=== PATIENT | male | born 1980 | race Caucasian/White ===

== ENCOUNTER → 2018-03-05 08:51 | Outpatient (CLI) | payer BC, SELFPAY ==
[2018-03-05 12:11] LABS: Cholesterol 219 mg/dL (200); Glucose 87 mg/dL (74-106); High Density Lipoprotein 48 mg/dL; Triglycerides 148 mg/dL; Very Low Density Lipoprotein 30 mg/dL (5-40)
== END ==
PROVIDERS: Family Provider Family Medicine; PCP Family Medicine; Visit Provider Family Medicine
DX: Z00.01 Encounter for general adult medical examination with abnormal findings (principal); Z83.42 Family history of familial hypercholesterolemia
CPT/HCPCS: 36415; 80061; 82947

== ENCOUNTER → 2018-03-26 15:49 | Outpatient (CLI) | payer BC, SELFPAY | PROVIDERS: Family Provider Family Medicine; PCP Family Medicine; Referring Provider Otolaryngology Otolaryngology/Facial Plastic Surgery; Visit Provider Otolaryngology Otolaryngology/Facial Plastic Surgery | DX: J32.9 Chronic sinusitis, unspecified (principal); J34.89 Other specified disorders of nose and nasal sinuses | CPT/HCPCS: 87070; 87077; 87186; 87205 ==

== ENCOUNTER → 2018-05-07 11:30 | Outpatient (CLI) | payer BC, SELFPAY ==
--- OUTSIDE RECORDS SUMMARY | 2018-07-03 09:24 | XMS RPT_ITS ---
:1980 Author Organization [facility] Care Team Providers Name Role Phone Miguel Angel Cruz Attending Unavailable Miguel Angel Cruz Primary Care Unavailable Jeff Ovalle Attending Unavailable Jeff Ovalle Referring Unavailable Miguel Angel Cruz Primary Care Unavailable Jeff Ovalle Attending Unavailable Jeff Ovalle Referring Unavailable Miguel Angel Cruz Primary Care Unavailable Jeff Ovalle Attending Unavailable Jeff Ovalle Referring Unavailable Miguel Angel Cruz Primary Care Unavailable PROBLEMS PROBLEMS DATE TYPE CONDITION / CODE ATTENDING STATUS SOURCE Unknown Z00.01 - Encounter for Miguel Angel Cruz 8 general adult medical Community examination with abnormal Hospital findings / Z00.01(ICD-10) Repository Unknown Z83.42 - Family history Miguel Angel Cruz 8 of familial Community hypercholesterolemia / Hospital Z83.42(ICD-10) Repository PROCEDURES PROCEDURES No Procedure Records FoundRESULTS RESULTS SINUS/FACIAL BONE Observed: 05/20/2018 Status: F Source: [place] 3:58 PM [facility] REPOSITORY [facility] Imaging Services [address] [place] [address] Sinus/Facial Bone MR#: [id number] Acct: [id number] Name: LAWSON BROTHERS Rep #: [id number] : 1980 M 37 From: Hudson Webster MD PCP: Miguel Angel Cruz DO Status: REG CLI Study: Sinus/Facial Bone Date of Exam: 05/20/18 Exam# [id number] Ordering Dr: Jeff Ovalle MD STUDY: CT MAXILLOFACIAL SINUSES REASON FOR EXAM: Male, 37 years old. Headaches and sinusitis. RADIATION DOSAGE (If Supplied By Facility): CTDIvol = ( 33.45 ) mGy, DLP = ( 436.81 ) mGycm TECHNIQUE: The patient was scanned in a multi detector CT scanner. High resolution axial imaging was performed without the administration of intravenous contrast material. Sagittal and coronal images were reconstructed. Individualized dose optimization techniques were used for this CT. COMPARISON: None. FINDINGS: FRONTAL SINUSES: The periosteal thickening and fluid level seen in the dependent portions of the bifrontal sinuses. ETHMOIDAL SINUSES: Near complete opacification of the right ethmoid except for mucoperiosteal thickening in the most posterior air cell. There is mucoperiosteal thickening in mid left ethmoid air cells. The more anterior left ethmoid sinus is opacified MAXILLARY SINUSES: Near complete opacification of the right maxillary sinus. There is minor mucoperiosteal thickening on the left. SPHENOIDAL SINUSES: Minimal mucoperiosteal thickening at the anterior right sphenoid sinus. There is patency of the left maxillary infundibuli with normal uncinate processes, ethmoid bullae, and hiatus semilunaris. The right hiatus semilunaris is obscured and there is partial opacification of the ethmoid bullae. There is tana bullosa of the left middle turbinate. Normal bilateral inferior turbinates. Normal midline nasal septum. There is patency of the bilateral nasal airways. The visualized osseous structures are normal. The visualized bilateral orbital contents are normal. CT/Sinus/Facial Bone IMPRESSION: Bilateral paranasal sinusitis, as described. Electronically Signed: Zac Webster MD at 19:41 EST , Service support , CC: Jeff Ovalle MD; Miguel Angel Cruz DO Sales Appointment Coordinator: Signed Observed: 05/07/2018 Status: F Source: [place] CULTURE, NOSE 11:30 AM [facility] REPOSITORY Gram Stain Gram Stain Rare White Blood Cells Rare Gram positive rods Nasoph. Cult Mixed normal karie. No Haemophilus, Streptococcus pneumoniae, beta-hemolytic Streptococcus or Staphylococcus aureus isolated. Performed By: #### M100.0900 #### [facility] [place], [address] Observed: 03/26/2018 Status: F Source: [place] CULTURE, NOSE 1:30 PM [facility] REPOSITORY Gram Stain Gram Stain 2+ White Blood Cells No organisms seen Nasoph. Cult Copy of report sent to Infection Control Printer [id number] 03/29/18 08Priscilla TAMAYO. RESULTS CALLED TO MODE AT DR OVALLE 03/29/18 0803 Verito Church. REPORT READ BACK BY SAME. ORGANISM 1: Meth. resistant Staph. aureus Amount Growth 1+ Meth. resistant Staph. aureus: REACTION Benzylpenicillin NF 0.25 R Cefoxitin *NF + Clindamycin $$ <=0.25 S Inducable Clindamycin Resistan - Erythromycin $ >=8 R Gentamicin $ <=0.5 S Levofloxacin $ <=0.12 S Linezolid $$$$ 2 S Oxacillin NF >=4 R Tigecycline $$$$ <=0.12 S Rifampin $$ <=0.5 S Tetracycline NF <=1 S Trimethoprim/Sulfametho $ <=10 S Vancomycin $ 1 S (NF) indicates non-formulary drug at [facility]. Approval by Infectious Disease Specialist required before non-formulary drugs may be ordered and/or dispensed. * CLSI guidelines does not recommend testing of cephalosporins. This interpretation is deduced from Beta-lactam/penicillin results. Performed By: #### M100.0900 #### [facility] [address] [place], [address] LIPID PROFILE Collected: 03/05/2018 Status: F Source: [place] 9:02 AM [facility] REPOSITORY TYPE CODE TESTS RESULT OUT OF RANGE REFERENCE UNITS LAB L501.4900 200 mg/dL High CHOL 219 Result Comment: <200 mg/dL Desirable 200-240 mg/dL Borderline >240 mg/dL High Risk LAB L501.5000 mg/dL Normal TRIG 148 Result Comment: The drugs N-Acetylcysteine and Metamizole may falsely depress this assay. Serum Triglycerides Reference Interval Normal <150 mg/dL Borderline high 150 - 199 mg/dL High 200 - 499 mg/dL Very High > or = 500 mg/dL LAB L501.6400 mg/dL Normal HDL 48 Result Comment: The drugs N-Acetylcysteine and Metamizole may falsely depress this assay. Reference Range HDL <40 mg/dL Low HDL Cholesterol HDL >or= 60 mg/dL High HDL Cholesterol LAB L501.6500 0-130 mg/dL High LDL 141 LAB L501.6600 5-40 mg/dL Normal VLDL 30 Performed By: #### L500.4100, L501.0100 #### [facility] [address] [place], [place], [address] GLUCOSE Collected: 03/05/2018 Status: F Source: [place] 9:02 [facility] REPOSITORY TYPE CODE TESTS RESULT OUT OF RANGE REFERENCE UNITS LAB L501.0100 74-106 mg/dL Normal GLU 87 Result Comment: Please note revised GLUCOSE reference range effective 2017. Performed By: #### L500.4100, L501.0100 #### [facility] [address] [facility] [place], [address] ALLERGIES ALLERGIES No Allergies Records FoundENCOUNTERS ENCOUNTERS ADMIT/DISCHARGE ACCOUNT ADMITTING ENCOUNTER LOCATION SOURCE NUMBER CLASS 05/20/2018 [id number] Ambulatory [facility] 1 [facility] ing:CT Repository 05/07/2018 [id number] Ambulatory [place] 4 [facility] ing:LABSPEC Repository 03/26/2018 [id number] Ambulatory [place] 1 [facility] ing:LABSPEC Repository 03/05/2018 [id number] Ambulatory [place] 4 [facility] ing:BFHLAB Repository PAYERS PAYERS ENCOUNTER GUARANTOR PAYER SUBSCRIBER SOURCE 05/20/2018 LAWSON Matthews Primary LAWSON Galarza [id number] Insurance:ANTHEMPolic VIPPERMANDOB: Community DESTINY LNAPT y Number: [id number] [id number] Repository [address]Voz: (740) Date:7405-87-96EV [phone] () [id number] [place] [address]JP: 05/20/2018 Secondary NOT GIVENUNK [place] Insurance:SELF PAY [facility] Number: Effective Repository Date:2018-05-10 05/07/2018 LAWSON Matthews Primary LAWSON Galarza [id number] Insurance:ANTHEMPolic VIPPERMANDOB: Community DESTINY LNAPT y Number: [id number] [id number] Repository [address]Fnr: ([phone]) Date:5882-10-86UY [phone] () [id number] [place] [address]CW: 05/07/2018 Secondary NOT GIVENUNK [place] Insurance:SELF PAY [facility] Number: Effective Repository Date:2018-05-07 03/26/2018 Lawson Matthews Primary Lawson Galarza [id number] Insurance:ANTHEMPolic VippermanDOB: Community DESTINY LNAPT y Number: [id number] [id number] Repository [address]Rmo: (740) Date:5909-81-82DI [phone] () [id number], [place] [address]UL: 03/26/2018 Secondary NOT GIVENUNK [place] Insurance:SELF PAY [facility] Number: Effective Repository Date:2018-03-26 03/05/2018 Lawson Matthews Primary Lawson Galarza [id number] Insurance:ANTHEMPolic VippermanDOB: Community DESTINY Number: [id number] [id number] Repository , [place] [address]Dja: Date:1432-03-13AW [address]KRQKS, [place] () [address]BJ: 03/05/2018 Secondary NOT GIVENPARVEEN [place] Insurance:SELF PAY [facility] Number: Effective Repository Date:2018-03-05
== END ==
PROVIDERS: Family Provider Family Medicine; PCP Family Medicine; Referring Provider Otolaryngology Otolaryngology/Facial Plastic Surgery; Visit Provider Otolaryngology Otolaryngology/Facial Plastic Surgery
DX: J32.9 Chronic sinusitis, unspecified (principal)
CPT/HCPCS: 87070; 87205

== ENCOUNTER → 2018-05-20 15:54 | Outpatient (CLI) | payer BC, SELFPAY ==
--- NOTE | 2018-05-20 15:58 | CT_ITS ---
STUDY: CT MAXILLOFACIAL SINUSES REASON FOR EXAM: Male, 37 years old. Headaches and sinusitis. RADIATION DOSAGE (If Supplied By Facility): CTDIvol = ( 33.45 ) mGy, DLP = ( 436.81 ) mGycm TECHNIQUE: The patient was scanned in a multi detector CT scanner. High resolution axial imaging was performed without the administration of intravenous contrast material. Sagittal and coronal images were reconstructed. Individualized dose optimization techniques were used for this CT. COMPARISON: None. FINDINGS: FRONTAL SINUSES: The periosteal thickening and fluid level seen in the dependent portions of the bifrontal sinuses. ETHMOIDAL SINUSES: Near complete opacification of the right ethmoid except for mucoperiosteal thickening in the most posterior air cell. There is mucoperiosteal thickening in mid left ethmoid air cells. The more anterior left ethmoid sinus is opacified MAXILLARY SINUSES: Near complete opacification of the right maxillary sinus. There is minor mucoperiosteal thickening on the left. SPHENOIDAL SINUSES: Minimal mucoperiosteal thickening at the anterior right sphenoid sinus. There is patency of the left maxillary infundibuli with normal uncinate processes, ethmoid bullae, and hiatus semilunaris. The right hiatus semilunaris is obscured and there is partial opacification of the ethmoid bullae. There is tana bullosa of the left middle turbinate. Normal bilateral inferior turbinates. Normal midline nasal septum. There is patency of the bilateral nasal airways. The visualized osseous structures are normal. The visualized bilateral orbital contents are normal. CT/Sinus/Facial Bone IMPRESSION: Bilateral paranasal sinusitis, as described. Electronically Signed: Zac Webster MD at 19:41 EST , Service support ,
--- OUTSIDE RECORDS SUMMARY | 2018-07-07 00:56 | XMS RPT_ITS ---
[...] 05/20/2018 Status: F Source: [place] 3:58 PM [facility] Imaging Services [address] [place] [address] Sinus/Facial Bone MR#: [id number] Acct: [id number] Name: LAWSON BROTHERS Rep #: [id number] : 1980 M 37 From: Hudson Webster MD PCP: Miguel Angel Cruz DO Status: REG CLI Study: Sinus/Facial Bone Date of Exam: 05/20/18 Exam# [id number] Ordering Dr: Jeff Ovalle MD ADDENDUM by Wade Helton MD on 06/12/18 at 1341 ADDENDUM This is an addendum report. There is mucosal thickening along the anterior inferior medial aspect of the left maxillary sinus. This measures 5.4 mm in greatest thickness. Electronically Signed: Wade Helton MD at 13:41 EST Tel [phone], Service support , 06/12/18 1341 Date cc: Jeff Ovalle MD; Miguel Angel Cruz DO * Signed ADDENDUM by Zac Webster on 06/07/18 at 1206 ADDENDUM The left sphenoid sinus is clear. Electronically Signed: Zac Webster MD at 12:06 EST , Service support , 06/07/18 1206 Date cc: Jeff Ovalle MD; Miguel Angel Cruz DO * Signed ADDENDUM by Wade Helton MD on 06/12/[address]/Sinus/Facial Bone 06/12/18 1347 Date cc: Jeff Ovalle MD; Miguel Angel Cruz DO * Signed ADDENDUM by aZc Webster on 06/07/[address]/Sinus/Facial Bone 06/07/18 1212 Date cc: Jeff Ovalle MD; Miguel Angel Cruz DO * Signed STUDY: CT MAXILLOFACIAL SINUSES REASON FOR EXAM: [...] Jeff Ovalle MD; Miguel Angel Cruz DO Internal Communications Manager: Signed Observed: 05/07/2018 Status: F Source: [place] CULTURE, NOSE 11:30 AM [facility] Gram Stain Gram Stain Rare White Blood Cells Rare Gram positive rods Nasoph. Cult Mixed normal karie. No Haemophilus, Streptococcus pneumoniae, beta-hemolytic Streptococcus or Staphylococcus aureus isolated. Performed By: #### M100.0900 #### [facility] [address] [place], [address] Observed: 03/26/2018 Status: F Source: [place] CULTURE, NOSE 1:30 PM [facility] Gram Stain Gram Stain 2+ White Blood Cells No organisms seen Nasoph. Cult Copy of report sent to Infection Control Printer [id number] 03/29/18 0803 RONI. RESULTS CALLED TO MODE AT DR OVALLE [...] 1 S (NF) indicates non-formulary drug at [facility]. Approval by Infectious Disease Specialist required before non-formulary drugs may be ordered and/or dispensed. * CLSI guidelines does not recommend testing of cephalosporins. This interpretation is deduced from Beta-lactam/penicillin results. Performed By: #### M100.0900 #### [facility] [address] [place], [place], [address] LIPID PROFILE Collected: 03/05/2018 Status: F Source: [place] 9:02 [facility] REPOSITORY TYPE CODE TESTS RESULT OUT OF [...] 30 Performed By: #### L500.4100, L501.0100 #### [facility] [address] [place], [place], [address] GLUCOSE Collected: 03/05/2018 Status: F Source: [place] 9:02 [facility] REPOSITORY TYPE CODE TESTS RESULT OUT OF RANGE REFERENCE UNITS LAB L501.0100 74-106 mg/dL Normal GLU 87 Result Comment: Please note revised GLUCOSE reference range effective 2017. Performed By: #### L500.4100, L501.0100 #### [facility] [place], [address] ALLERGIES ALLERGIES No Allergies Records FoundENCOUNTERS ENCOUNTERS ADMIT/DISCHARGE ACCOUNT ADMITTING ENCOUNTER LOCATION SOURCE NUMBER CLASS 05/20/[id number] ing:CT Repository 05/07/[id number] ing:LABSPEC Repository 03/26/[id number] ing:LABSPEC Repository 03/05/[id number] ing:BFHLAB Repository PAYERS PAYERS ENCOUNTER GUARANTOR PAYER SUBSCRIBER SOURCE 05/20/2018 LAWSON Schofield [id number] Insurance:ANTHEMPolic VIPPERMANDOB: [facility] LNAPT y Number: [id number] [id number] Repository [address]Fas: 740) Date:7149-53-77NH [phone] () [id number] [place] [address]WS: 05/20/2018 Secondary NOT GIVENUNK [place] Insurance:SELF PAY [facility] Number: Effective Repository Date:2018-05-10 05/07/2018 LAWSON Matthews Primary LAWSON Schofield [id number] Insurance:ANTHEMPolic VIPPERMANDOB: [facility] y Number: [id number] [id number] Repository [address]Sbe: (740) Date:2943-32-03FD [phone] () [id number] [place] [address]LE: 05/07/2018 Secondary NOT GIVENUNK [place] Insurance:SELF PAY [facility] Number: Effective Repository Date:2018-05-07 03/26/2018 Lawson Matthews Primary Lawson Schofield [id number] Insurance:ANTHEMPolic VippermanDOB: [facility] LNAPT y Number: [id number] [id number] Repository [address]Ntu: 740) Date:0195-32-41QZ [phone] () [id number], [place] [address]PH: 03/26/2018 Secondary NOT GIVENUNK [place] Insurance:SELF PAY [facility]: Effective Repository Date:2018-03-26 03/05/2018 Lawson Matthews Primary Lawson Matthews [place] [id number] Insurance:ANTHEMPolic VippermanDOB: Community DESTINY y Number: [id number] [id number] Repository , [place] [address]Fro: Date:8464-69-61OT [id number] REAL () [address]HB: 03/05/2018 Secondary NOT GIVENUNK [place] Insurance:SELF PAY [facility]: Effective Repository Date:2018-03-05
== END ==
PROVIDERS: Family Provider Family Medicine; PCP Family Medicine; Referring Provider Otolaryngology Otolaryngology/Facial Plastic Surgery; Visit Provider Otolaryngology Otolaryngology/Facial Plastic Surgery
DX: J32.9 Chronic sinusitis, unspecified (principal)
CPT/HCPCS: 70486

== ENCOUNTER → 2018-09-21 08:52 | Outpatient (CLI) | payer BC, SELFPAY ==
--- NOTE | 2018-09-21 08:57 | CT_ITS ---
STUDY: CT MAXILLOFACIAL SINUSES REASON FOR EXAM: Male, 38 years old. Sinusitis RADIATION DOSAGE (If Supplied By Facility): CTDIvol = ( 33.06 ) mGy, DLP = ( 866.91 ) mGycm TECHNIQUE: The patient was scanned in a multi detector CT scanner. High resolution axial imaging was performed without the administration of intravenous contrast material. Sagittal and coronal images were reconstructed. Individualized dose optimization techniques were used for this CT. COMPARISON: 05/20/2018 FINDINGS: FRONTAL SINUSES: Normal aeration, without mucosal inflammatory disease. ETHMOIDAL SINUSES: Normal aeration, without mucosal inflammatory disease. MAXILLARY SINUSES: 15 mm cyst in the floor of the right maxillary sinus. SPHENOIDAL SINUSES: Normal aeration, without mucosal inflammatory disease. There is patency of the bilateral maxillary infundibuli with normal uncinate processes, ethmoid bullae, and hiatus semilunaris. Normal bilateral middle turbinates. Normal bilateral inferior turbinates. Normal midline nasal septum. There is patency of the bilateral nasal airways. The visualized osseous structures are normal. The visualized bilateral orbital contents are normal. CT/Sinus/Facial Bone IMPRESSION: No evidence of acute or chronic paranasal sinusitis. Electronically Signed: Balwinder Anguiano MD at 18:19 EDT Tel , Service support ,
== END ==
PROVIDERS: Family Provider Family Medicine; PCP Family Medicine; Referring Provider Otolaryngology; Visit Provider Otolaryngology
DX: J32.9 Chronic sinusitis, unspecified (principal)
CPT/HCPCS: 70486

== ENCOUNTER → 2019-08-04 | Outpatient (CLI) | payer OTHER, SELFPAY | END | disposition home or self-care (01) | PROVIDERS: PCP Family Medicine; Referring Provider Otolaryngology; Visit Provider Otolaryngology | DX: J32.9 Chronic sinusitis, unspecified (principal) | CPT/HCPCS: 87070; 87077; 87205 ==

== ENCOUNTER 2019-11-18 12:11 | Emergency (ER) | payer OTHER, SELFPAY ==
[2019-11-18 12:13] VITALS: BP 131/92; BP 140/101; PULSE 104; PULSE 97; RESP 16; RESP 18; TEMP 36.7; O2SAT 100; O2SAT 99; BMI 27.0
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
== END 2019-11-18 13:53 | disposition home or self-care (01) ==
PROVIDERS: Emergency Provider Emergency Medicine; PCP Family Medicine
DX: S16.1XXA Strain of muscle, fascia and tendon at neck level, initial encounter (principal); V59.40XA Driver of pick-up truck or van injured in collision with unspecified motor vehicles in traffic accident, initial encounter; Y93.9 Activity, unspecified; Y92.9 Unspecified place or not applicable; J32.9 Chronic sinusitis, unspecified; M48.02 Spinal stenosis, cervical region; F41.9 Anxiety disorder, unspecified; Z79.899 Other long term (current) drug therapy
CPT/HCPCS: 70450; 72125; 99284

== ENCOUNTER → 2019-11-28 08:49 | Outpatient (CLI) | payer OTHER, SELFPAY ==
[2019-11-18 12:13] VITALS: BMI 27.0
[2019-11-28 12:46] LABS: Cholesterol 206 mg/dL (200); High Density Lipoprotein 41 mg/dL; Triglycerides 132 mg/dL; Very Low Density Lipoprotein 26 mg/dL (5-40)
== END ==
PROVIDERS: PCP Family Medicine; Visit Provider Family Medicine
DX: E78.5 Hyperlipidemia, unspecified (principal)
CPT/HCPCS: 36415; 80061

== ENCOUNTER 2019-12-22 14:30 | Emergency (ER) | payer OTHER, SELFPAY ==
[2019-12-22 14:31] VITALS: BP 144/97; PULSE 102; RESP 18; TEMP 36.6; O2SAT 99; BMI 27.0
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
--- NOTE | 2019-12-22 15:35 | ED.VISSUMM ---
- ER Visit Summary Date of Service: 12/22/19 Chief Complaint: [Foreign body to left thumb] History of Present Illness: The patient is a 39 M [presents to the emergency department with a nail lodged in his left thumb. Patient states that he was helping a friend when he accidentally shot himself with a nail gun. Patient is right-hand dominant. He is unsure of his last tetanus.] Physical Examination: [Left hand-patient has a large nail with entrance into the left thumb over the area of the dorsal first MCP joint. Initially with the nail in the thumb he had limited ability to flex or extend the thumb secondary to pain and foreign body present. He is neurovascularly intact with normal sensation.] After removal of the nail patient had normal flexion extension of the thumb at the MCP joint as well as the IP joint against resistance. Test Results: [X-rays of the left thumb obtained showed a nail in the soft tissues however it was unclear if it was penetrating into the bone.] Emergency Department Course and Treatment: Patient was given a digital block using 2% lidocaine total of 8 cc used. Thumb was cleansed with Shur-Clens and irrigated with saline. Using needle drivers I was able to easily remove the nail from the finger. Once again the puncture wound was irrigated with saline and cleansed with Shur-Clens. Patient tolerated procedure well. Dressing was applied. Adacel tetanus booster was given. Patient given a dose of clindamycin as he believes that he has had allergic reaction to cephalosporins. [] Treatment Plan: [Patient will be given a prescription for clindamycin and advised to follow-up with primary care physician in 3 to 5 days.] Disposition: [Discharged home in stable condition] Impression: [Foreign body left thumb-removed] This note was generated with Yoomlyation software. It may contain incorrect words, spelling, and punctuation that were not noted in review of the chart prior to signing ED Disposition - Plan for ED Patient: Referrals: Miguel Angel Cruz DO [Primary Care Provider] -
--- NOTE | 2019-12-22 15:39 | ED.DEP ---
ED Disposition - Plan for ED Patient: Instructions: ED Foreign Body Soft Tissue Prescriptions: Clindamycin HCl [Cleocin] 300 mg PO Q6H #40 cap Transmission Status: Pending to [id number] Referrals: Miguel Angel Cruz DO [Primary Care Provider] - 3-5 Days
[2019-12-22] MEDS: Diphth,Pertuss(Acell),Tet Vac 0.5 ML Vial IM (16:06)
[2019-12-22] MEDS: Clindamycin HCl 150 MG Capsule 300 MG PO (16:07)
[2019-12-22 16:23] VITALS: PULSE 94; RESP 17; O2SAT 98
== END 2019-12-22 16:26 | disposition home or self-care (01) ==
LOC: ED 15:59
PROVIDERS: Emergency Provider Emergency Medicine; PCP Family Medicine
DX: S60.352A Superficial foreign body of left thumb, initial encounter (principal); W29.4XXA Contact with nail gun, initial encounter; Y93.9 Activity, unspecified; Y92.9 Unspecified place or not applicable
CPT/HCPCS: 73130; 90471; 90715; 99284

== ENCOUNTER → 2020-04-19 17:51 | Outpatient (CLI) | payer BC, SELFPAY | PROVIDERS: PCP Family Medicine; Referring Provider Otolaryngology; Visit Provider Otolaryngology | DX: U07.1 COVID-19 (principal) | CPT/HCPCS: 87635; C9803; U0003 ==

== ENCOUNTER → 2021-04-28 | Outpatient (CLI) | payer BC, SELFPAY | END | disposition home or self-care (01) | LOC: LABSPEC 10:03 | PROVIDERS: PCP Family Medicine; Visit Provider Otolaryngology | DX: J32.9 Chronic sinusitis, unspecified (principal) | CPT/HCPCS: 87070; 87077; 87205 ==

== ENCOUNTER → 2021-10-05 | Outpatient (CLI) | payer BC, SELFPAY | END | disposition home or self-care (01) | LOC: LABSPEC 14:08 | PROVIDERS: PCP Family Medicine; Referring Provider Dermatology; Visit Provider Dermatology | DX: S60.032A Contusion of left middle finger without damage to nail, initial encounter (principal) | CPT/HCPCS: 87070; 87077; 87186; 87205 ==

== ENCOUNTER → 2021-12-29 | Outpatient (CLI) | payer BC, SELFPAY | END | disposition home or self-care (01) | LOC: LABSPEC 15:37 | PROVIDERS: PCP Family Medicine; Visit Provider Otolaryngology | DX: J32.9 Chronic sinusitis, unspecified (principal) | CPT/HCPCS: 87070; 87205 ==

== ENCOUNTER → 2024-04-25 | Outpatient (CLI) | payer OTHER, SELFPAY ==
[2024-04-25 10:34] LABS: Absolute Lymphocyte Count 1.79 X10^3/uL (0.83-4.51); Absolute Neutrophil Count 5.5 X10^3/uL (2.0-7.7); Basophil# 0.03 X10^3/uL; Basophil% 0.4 % (0-1); Eosinophil# 0.07 X10^3/uL; Eosinophils% 0.9 % (0-5); Hematocrit 43.7 % (40-54); Hemoglobin 14.2 g/dL (13.0-16.5); Lymphocyte # 1.79 X10^3/ul (0.83-4.51); Lymphocyte % 22.1 % (19-41); Mean Corp Hgb Conc 32.5 g/dL (32-36); Mean Corpuscular Hgb 28.3 pg (27.0-32.0); Mean Corpuscular Volume 87.1 fL (80-94); Mean Platelet Vol. 9.5 fl (6.2-12.0); Monocyte# 0.69 X10^3/uL; Monocyte% 8.5 % (0-10); NRBC Flagged by Analyzer 0 % (0-5); Neutrophil # 5.46 X10^3/uL (2.7-7.7); Neutrophil % 67.5 % (47-70); Platelet Count 333 K/mm3 (150-450); RBC Distribution Width CV 12.2 % (11.6-14.6); RBC Distribution Width SD 38.9 fl (35.1-43.9); Red Blood Count 5.02 M/mm3 (4.6-6.2); White Blood Count 8.1 K/mm3 (4.4-11.0)
[2024-04-25 10:43] LABS: Erythrocyte Sedimentation Rate 11 mm/hr (0-20)
[2024-04-25 11:16] LABS: Amylase 58 U/L (25-115); CPK Total, Creatine Kinase 124 U/L (39-308); Lipase 45 U/L (13-75)
[2024-04-30 09:09] LABS: ACCA 495 units (0-90); ALCA 82 units (0-60); AMCA 531 units (0-100); Albumin 3.6 g/dL (2.9-4.4); Aldolase 4.7 U/L (3.3-10.3); Alpha-1-Globulins 0.4 g/dL (0.0-0.4); Alpha-2-Globulins 1.1 g/dL (0.4-1.0); Cytoplasmic Ab (C-ANCA) <1:20 titer (Neg:<1:20); Endomysial Antibody IgA Negative (Negative); Gamma Globulin 1.2 g/dL (0.4-1.8); Gastrin, Serum 30 pg/mL (0-115); Immunoglobulin A 225 mg/dL (90-386); Immunoglobulin E 46 IU/mL (6-495); Immunoglobulin G 1021 mg/dL (603-1613); Immunoglobulin M 308 mg/dL (20-172); PROEL- TOTAL PROTEIN 7.5 g/dL (6.0-8.5); Perinuclear Ab (P-ANCA) <1:20 titer (Neg:<1:20); gASCA 11 units (0-50); t-Transglutaminase IgA <2 U/mL (0-3)
[2024-04-30 12:10] LABS: Anti-Centromere B Ab <0.2 AI (0.0-0.9); Anti-Chromatin <0.2 AI (0.0-0.9); Anti-Jo <0.2 AI (0.0-0.9); Anti-Scleroderma-70 AB <0.2 AI (0.0-0.9); Anti-dsDNA Ab <1 IU/mL (0-9); Beef <0.10 kU/L (Class 0); Chocolate <0.10 kU/L (Class 0); Codfish <0.10 kU/L (Class 0); Corn 0.11 kU/L (Class 0/I); Egg, Whole <0.10 kU/L (Class 0); Milk (Cow) <0.10 kU/L (Class 0); Mussels <0.10 kU/L (Class 0); Peanut 0.15 kU/L (Class 0/I); Pork <0.10 kU/L (Class 0); RNP Ab <0.2 AI (0.0-0.9); SJOGREN'S Anti-SS-A test < 0.2 AI (0.0-0.9); SJOGREN'S Anti-SS-B test < 0.2 AI (0.0-0.9); Salmon <0.10 kU/L (Class 0); Shrimp <0.10 kU/L (Class 0); Smith Ab <0.2 AI (0.0-0.9); Soybean <0.10 kU/L (Class 0); Tuna <0.10 kU/L (Class 0); Wheat 0.11 kU/L (Class 0/I)
== END | disposition home or self-care (01) ==
PROVIDERS: PCP Family Medicine; Referring Provider Internal Medicine Gastroenterology; Visit Provider Internal Medicine Gastroenterology
DX: K44.9 Diaphragmatic hernia without obstruction or gangrene (principal); K21.9 Gastro-esophageal reflux disease without esophagitis
CPT/HCPCS: 36415; 82085; 82150; 82550; 82784; 82785; 82941; 83516; 83690; 84165; 85025; 85652; 86003; 86005; 86036; 86037; 86140; 86225; 86235; 86255; 86334; 86671

== ENCOUNTER → 2024-05-07 | Outpatient (CLI) | payer OTHER, SELFPAY ==
[2024-05-12 16:09] LABS: Pancreatic Elastase, Fecal > 800 (>200)
[2024-05-13 17:07] LABS: Calprotectin, Stool 38 ug/g (0-120); Fats, Neutral Normal (.); Fats, Total Normal (.)
== END | disposition home or self-care (01) ==
PROVIDERS: PCP Family Medicine; Referring Provider Internal Medicine Gastroenterology; Visit Provider Otolaryngology
DX: J32.9 Chronic sinusitis, unspecified (principal); K58.9 Irritable bowel syndrome, unspecified; K44.9 Diaphragmatic hernia without obstruction or gangrene; K21.9 Gastro-esophageal reflux disease without esophagitis
CPT/HCPCS: 82274; 82653; 82705; 83630; 83993; 87070; 87077; 87177; 87205; 87209; 87329; 87493; 87506

== ENCOUNTER → 2024-06-12 | Outpatient (CLI) | payer OTHER, SELFPAY ==
--- NOTE | 2024-06-12 12:26 | NM_ITS ---
CLINICAL: 43-year-old male with history of abdominal hernia and reflux esophagitis. SEMI-SOLID PHASE 99m Tc SULFUR COLLOID GASTRIC EMPTYING STUDY COMPARISON: None available FINDINGS: The patient was administered 1.0 mCi of 99m Tc sulfur colloid mixed with oatmeal and consumed per os. Image acquisitions in the anterior-posterior projections were obtained for 60 minutes. There is prompt visualization of the stomach. There is no gastroesophageal reflux identified. The T ? raw data emptying was calculated to be 30.96 minutes, (Normal: 12-56 minutes). NM/Gastric Emptying Study IMPRESSION: 1. NORMAL 99m Tc sulfur colloid semi-solid phase (oatmeal) gastric emptying imaging examination. A. There is normal and preserved semi-solid phase gastric emptying compared to normal controls with maintained first order kinetics throughout all components of the examination. (Shahab et al, J Nucl Med Tech 38: 186, 2010). Electronically Signed: Cabrera Holloway DO at 20:53 EST ,
== END | disposition home or self-care (01) ==
LOC: NM 12:24
PROVIDERS: PCP Family Medicine; Referring Provider Internal Medicine Gastroenterology; Visit Provider Internal Medicine Gastroenterology
DX: K44.9 Diaphragmatic hernia without obstruction or gangrene (principal); K21.9 Gastro-esophageal reflux disease without esophagitis
CPT/HCPCS: 78264; A9541

== ENCOUNTER → 2024-07-02 | Outpatient (CLI) | payer OTHER, SELFPAY ==
[2024-07-02 14:12] LABS: CRP < 2.90 mg/L (0.0-3.0)
== END | disposition home or self-care (01) ==
LOC: LAB 12:41
PROVIDERS: PCP Family Medicine; Referring Provider Nurse Practitioner Acute Care; Visit Provider Nurse Practitioner Acute Care
DX: K21.9 Gastro-esophageal reflux disease without esophagitis (principal); R79.82 Elevated C-reactive protein (CRP); R89.9 Unspecified abnormal finding in specimens from other organs, systems and tissues
CPT/HCPCS: 36415; 86140

== ENCOUNTER → 2024-07-07 | Outpatient (CLI) | payer OTHER, SELFPAY ==
--- NOTE | 2024-07-07 08:59 | MRI_ITS ---
STUDY: MR ENTEROGRAPHY WITH CONTRAST REASON FOR EXAM: Male, 43 years old. K21.9 - Gastro-esophageal reflux disease without esophagitis, NO C/O ABDOMINAL PAIN TECHNIQUE: Multipulse sequence MRI performed with IV contrast according to standard MR enterography protocol following administration of oral contrast for maximal bowel distention. Images were obtained from the dome of the diaphragm to the symphysis pubis. IV Yes was administered intravenously. TECHNICAL QUALITY: Image Quality: Satisfactory Small Bowel Distension: Adequate. COMPARISON: None. FINDINGS: FINDINGS: Bowel: Bowel wall thickening: Absent. Skip lesions: Short segment narrowing third ileum seen on image series 15 involving a 4.35 cm length of about which shows alternating beading with small areas of stenoses/narrowing then return to somewhat normal caliber of bowel which is a typical finding of extrinsic fibrosis or mucosal changes related to inflammatory bowel disease versus irritable bowel syndrome. Normal remaining small bowel. Vascularity: Normal. Enhancement: Normal. Fistula: None. Abscess: None. Other Findings: The visualized lung bases are unremarkable. The visualized portions of the heart are within normal limits. Normal liver. Normal gallbladder and extrahepatic biliary system. Normal spleen. Normal pancreas. Normal bilateral adrenal glands. Normal right kidney. Normal left kidney. Normal visualized stomach. Normal small intestine. Normal colon. The appendix is visualized and appears normal. Normal abdominal aorta. Normal inferior vena cava. Normal retroperitoneum. Normal urinary bladder. Normal abdominal wall. Normal osseous structures. MRI/Enterography Abd/Pel IMPRESSION: 1. Skip lesions: Short segment narrowing third ileum seen on image /42 series 15 involving a 4.35 cm length of about which shows alternating beading with small areas of stenoses/narrowing then return to somewhat normal caliber of bowel which is a typical finding of extrinsic fibrosis or mucosal changes related to inflammatory bowel disease versus irritable bowel syndrome. Normal remaining small bowel. Electronically Signed: Antonio Torres MD at 9:26 EST ,
[2024-07-07 09:48] VITALS: BP 118/82; PULSE 67; RESP 16; O2SAT 100; BMI 27.6
[2024-07-07] MEDS: Glucagon 1 MG/ML Syringe IV (10:58)
[2024-07-07] MEDS: 0.9% Saline Lock 10 ML Syringe IV (10:58)
[2024-07-07 11:15] VITALS: BP 144/84; PULSE 74; RESP 16; O2SAT 97
== END | disposition home or self-care (01) ==
LOC: MRI 08:55
PROVIDERS: PCP Family Medicine; Referring Provider Nurse Practitioner Acute Care; Visit Provider Nurse Practitioner Acute Care
DX: K21.9 Gastro-esophageal reflux disease without esophagitis (principal); R79.82 Elevated C-reactive protein (CRP); R89.9 Unspecified abnormal finding in specimens from other organs, systems and tissues
CPT/HCPCS: 74183; 96374; A9575; A4216; J1610

== ENCOUNTER 2024-07-08 05:26 | Day surgery (SDC) | payer OTHER, SELFPAY ==
[2024-07-08] VITALS (8 sets, daily range): BP systolic 105–141; BP diastolic 69–99; PULSE 65–91; RESP 16–20; TEMP 36.2–36.3; O2SAT 95–100; BMI 27.1
--- NOTE | 2024-07-08 06:24 | PRE.ANES_ITS ---
ASA Classification* ASA Classification ASA Classification: 2 Assessment & Plan Anesthesia* Anesthesia Assessment Anesthesia Assessment: Discussed sedation and/or anesthesia options, risks, benefits, and alternatives with patient/parents/legal guardian/POA. Questions invited. The patient/parents/legal guardian/POA seems to understand and agrees to proceed with anesthesia plan. Reviewed the physical assessment, medical history, allergy history and patient home medications list prior to surgery/procedure/anesthetic and documented any changes. Performed airway and anesthesia risk assessments. Anesthesia Type Anesthesia Type: MAC History Source History Obtained from:: Patient and Chart Anesthesia Focused Assessment* Temperature: 97.3 F Pulse Rate: 91 Blood Pressure: 141/99 Respiratory Rate: 20 Pulse Ox: 100 Oxygen Delivery Method: Room Air Airway Assessment Mouth opens: >3 cm Mallampati Score: II Teeth Condition: Intact Neck Range of motion (ROM): Full ROM Focused Labs Anesthesia Preop lab: CBC WBC 8.1 K/mm3 (4.4-11.0) 04/25/24 10:03 RBC 5.02 M/mm3 (4.6-6.2) 04/25/24 10:03 Hgb 14.2 g/dL (13.0-16.5) 04/25/24 10:03 Hct 43.7 % (40-54) 04/25/24 10:03 Plt Count 333 K/mm3 (150-450) 04/25/24 10:03 CHEMISTRY Potassium 3.5 mmol/L (3.5-5.1) 12/17/15 07:23 Sodium 139 mmol/L (136-145) 12/17/15 07:23 BUN 10 mg/dL (7-18) 12/17/15 07:23 Creatinine 1.17 mg/dL (0.70-1.30) 12/17/15 07:23 Glucose 87 mg/dL (74-106) 03/05/18 09:02 TSH 1.24 uIU/mL (0.358-3.74) 12/17/15 07:23 COAG Pre-Assessment Diagnosis/Proposed Procedure Planned Operative Procedure(s): EGD/CSCOPE Anesthesia History 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 When Was Last Pacemaker Check QUESTION #4 FULL TEXT: You/Your Family Experience fever (hyperthermia) with Anesthesia Last Oral Intake Last Oral intake: Last Oral Intake NPO since 05:30 07/08/24 06:01 Meds taken in AM with sips of No 07/08/24 06:01 water? Meds patient instructed to take am of surgery Any additional information?: Yes NPO since: 02: (Patient finished prep at 2:30 AM.) PONV PONV - ambulance dispatcher: PONV - ambulance dispatcher Female No 07/04/24 14:11 HX of Motion Sickness No 07/04/24 14:11 HX of N/V After Surgery No 07/04/24 14:11 Non-Smoker Yes 07/04/24 14:11 Duration of Surgery greater No 07/04/24 14:11 than 60 minutes Number of Risk Factors 1 07/04/24 14:11 PONV Score Low Risk 07/04/24 14:11 Height & Weight Height & Weight: Anesthesia: Height & Weight Height 6 ft 2 in 07/08/24 06:01 Weight: 96 kg 07/08/24 06:01 Body Mass Index (BMI) 27.1 07/08/24 06:01 Respiratory Assessment Respiratory Assessment - ambulance dispatcher: Respiratory Tract Infection Hx - ambulance dispatcher Hx Respiratory Tract Infection No 07/04/24 14:11 STOP Sleep Apnea STOP Sleep Apnea - ambulance dispatcher: STOP Sleep Apnea - ambulance dispatcher Hx Hypertension No 07/04/24 14:11 Hx Sleep Apnea No 07/04/24 14:11 CPAP BIPAP Do you snore loudly (louder No 07/04/24 14:11 than talking or can be heard Do you often feel tired/ No 07/04/24 14:11 fatigued/ sleepy during daytime? Has anyone observed you stop No 07/04/24 14:11 breathing during sleep? STOP Results Negative 07/04/24 14:11 QUESTION #5 FULL TEXT : Do you snore loudly (louder than talking or can be heard through closed doors)? 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 Specify any problems Hx of Preganancy in last 3 N/A 07/04/24 14:11 Months Nurse Filling Out Transfusion DSCHRIBER 07/04/24 14:11 & Questions: Date: 07/04/24 07/04/24 14:11 Time: 14:12 07/04/24 14:11 Patient unable to answer at this time (ie. confused, unrespo /Reproduction History /Reproductive History - ambulance dispatcher: /Reproductive Hx- ambulance dispatcher Hx Now No 07/04/24 14:11 Gestational Age (in weeks): EDC: Hx Hx Para Hx Section SAB No 07/04/24 14:11 [facility] Medical History History of hiatal hernia Gastric reflux Non-smoker Chronic sinusitis Cervical spondylosis with radiculopathy Teeth grinding Allergic rhinitis Depression Anxiety Home Medications ?Medication ?Instructions ?Recorded ?Last Taken ?Type escitalopram oxalate 10 mg tablet 10 mg PO DAILY 11/18/19 07/07/24 History lansoprazole 30 mg capsule,delayed 30 mg PO .COMPLEX #90 caps 05/27/24 Unknown Rx release pantoprazole 40 mg tablet,delayed 40 mg PO DAILY 07/07/24 07/07/24 History release (Protonix) Allergy/AdvReac Type Severity Reaction Status Date / Time cefadroxil Allergy Rash Verified 07/08/24 05:59 lorazepam AdvReac Other Verified 07/08/24 05:59 Family History Father Hypertension High cholesterol Prostate cancer metastatic to rectum Mother Cancer skin Surgical History H/O endoscopy Social History number of children: 3 current occupational status: employed 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
--- NOTE | 2024-07-08 06:30 | EGD_PTH ---
PATIENT: REID BROTHERS LOC: EN U#:[id number] AGE/SX: 43/M ROOM: RE07/08/[address]: Dr. Kg Quintanilla DO : 1980 BED: DIS: 07/08/2024 SPEC #: [id number] RECD: 07/08/24 11:12 STATUS: CYN SHAUNA #: [id number] KAYLIE: 07/08/24 06:[address]: Kg Quintanilla DEPT: SURGICAL PATHOLOGY RECD BY: Judy Knutson ENTERED: 07/08/24 12:22 SP TYPE: EGD BIOPSY OT DR: Dr. Miguel Angel Cruz DO Tissues: A - Esophagus, NOS B - Duodenum, NOS C - Ileum, NOS D - COLON BIOPSY E - Rectum, NOS Procedures: Special Stain Group I Surgery Specimen Level IV Alcian Blue/PAS (control) HEADER OPERATION: Colonoscopy with biopsies, EGD with biopsies PRE-OP DIAGNOSIS: Elevated CRP, hiatal hernia, GERD TISSUE SUBMITTED: A- Distal esophagus biopsy, B- Duodenum biopsy, C- Terminal ileum biopsy, D- Random colon biopsy, E- Rectal biopsy MICROSCOPIC DIAGNOSIS A. Distal esophagus, biopsy: Fragments of gastroesophageal mucosa with moderate chronic inflammation. Intestinal metaplasia (goblet cell metaplasia) not identified. See comment. B. Duodenum, biopsy: Fragments of duodenal mucosa, no pathologic diagnosis. C. Terminal ileum, biopsy: Fragments of small intestinal mucosa, no pathologic diagnosis. See comment. D. Colon, random biopsy: Fragments of colonic mucosa, no pathologic diagnosis. E. Rectal biopsy: Fragments of colonic mucosa, no pathologic diagnosis. GREG. 07/09/2024 COMMENT A. Alcian blue/PAS stain with matched control is used in the evaluation of the specimen. C. Prominent lymphoid aggregates are noted. MICROSCOPIC DESCRIPTION Slides are reviewed. GROSS DESCRIPTION A. Received in fixative is one container labeled with the patient's name and designated Distal esophagus biopsy. The specimen consists of multiple irregular fragments of light mcclure soft tissue that in aggregate measure 1.7 x 0.3 x 0.2 cm. The specimen is totally submitted in one cassette. B. Received in fixative is one container labeled with the patient's name and designated Duodenum biopsy. The specimen consists of multiple irregular fragments of light mcclure soft tissue that in aggregate measure 1.3 x 0.3 x 0.2 cm. The specimen is totally submitted in one cassette. C. Received in fixative is one container labeled with the patient's name and designated Terminal ileum biopsy. The specimen consists of multiple irregular fragments of light mcclure soft tissue that in aggregate measure 1.2 x 0.3 x 0.2 cm. The specimen is totally submitted in one cassette. D. Received in fixative is one container labeled with the patient's name and designated Random colon biopsy. The specimen consists of multiple irregular fragments of light mcclure soft tissue that in aggregate measure 1.8 x 0.4 x 0.3 cm. The specimen is totally submitted in one cassette. E. Received in fixative is one container labeled with the patient's name and designated Rectal biopsy. The specimen consists of two irregular fragments of light mcclure soft tissue that in aggregate measure 1.2 x 0.3 x 0.2 cm. The specimen is totally submitted in one cassette. ANGEL LUIS.mr 07/08/2024 TC:3 CPT:21981g5,35107
--- NOTE | 2024-07-08 06:40 | HP.PCM_ITS ---
HPI - General General Date of Admission: 07/08/24 Date of Service: 07/08/24 HPI Narrative 43y/o male presents for EGD and colonoscopy regarding family history of esophageal cancer, breakthrough GERD and diarrhea - seen in office today with his father Mother with colitis but not ulcerative colitis Maternal Uncle with esophageal cancer Paternal Aunt with colon CA in her 90's Food Panel: 04/25/2024 corn, peanut, wheat Fecal Elastase: 04/25/2024 normal Fecal Calprotectin: 04/25/2024 normal pANCA: 04/25/2024 normal ALCA 04/25/2024 82 (H) AMCA 04/25/2024 531(H) ACCA 04/25/2024 495(H) Gastrin 04/25/2024 normal Celiac Serologies 04/25/2024 normal Ricardo: 04/25/2024 normal Stool Cultures, GIPCR, C. Diff negative Occult Stool 04/25/[address] Chest/ABD/Pelvis with contrast was performed 10/24/2023 and revealed a small HH with a small amount of contrast seen throughout the esophagus which may be seen with GERD and a small fat containing umbilical hernia. - reports his symptoms are acid reflux, with breakthrough - protonix 40mg daily - has been on this for years - denies any cough or dysphagia - spicy food, caffeine, sugar - reports at the time he was last seen here he had a sinus infection and had just started taking doxycycline - this is when labs were completed - has never had a colonoscopy - EGD 10 years ago revealed a HH ([facility]) - GES is scheduled for 06/12/2023 - denies any change in bowel habits - denies nay bleeding - denies any abdominal pain - denies any weight loss - for sinus infection he has completed 2 rounds of doxycycline, had a nasal culture and just started Bactrim yesterday for the next 7 days [facility] Medical History History of hiatal hernia Gastric reflux Non-smoker Chronic sinusitis Cervical spondylosis with radiculopathy Teeth grinding Allergic rhinitis Depression Anxiety Home Medications ?Medication ?Instructions ?Recorded ?Last Taken ?Type escitalopram oxalate 10 mg tablet 10 mg PO DAILY 11/18/19 07/07/24 History lansoprazole 30 mg capsule,delayed 30 mg PO .COMPLEX #90 caps 05/27/24 Unknown Rx release pantoprazole 40 mg tablet,delayed 40 mg PO DAILY 07/07/24 07/07/24 History release (Protonix) Allergy/AdvReac Type Severity Reaction Status Date / Time cefadroxil Allergy Rash Verified 07/08/24 05:59 lorazepam AdvReac Other Verified 07/08/24 05:59 Family History Father Hypertension High cholesterol Prostate cancer metastatic to rectum Mother Cancer skin Surgical History H/O endoscopy Social History number of children: 3 current occupational status: employed 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) Smoking Status: Never smoker alcohol intake: current alcohol intake frequency: holidays/special occasions only substance use type: does not use ROS Constitutional Constitutional: Denies fatigue, fever(s), poor appetite, weight gain or weight loss Gastrointestinal Gastrointestinal: Denies belching, bloating, change in bowel habits, change in stool character, chewing difficulty, coffee ground emesis, constipation, cramping, diarrhea, dyspepsia, dysphagia, early satiety, excessive flatus, fecal incontinence, heartburn, hematemesis, hematochezia, hemorrhoids, loose stools, melena, nausea, odynophagia, rectal bleeding, tenesmus, vomiting or weight changes Vital Signs Vital Signs Vital Signs: 07/08/24 06:01 07/08/24 06:01 07/08/24 06:30 Temperature 97.3 F L 97.3 F L Temperature Source Temporal Pulse Rate 91 91 Respiratory Rate 20 H 20 H Respiratory Pattern Normal Blood Pressure 141/99 H 141/99 H Blood Pressure Mean 113 Blood Pressure Source Monitor Blood Pressure Position Semi-Fowlers Blood Pressure Location Left Arm Pulse Ox 100 100 Oxygen Delivery Method Room Air Room Air Weight Weight: 211 lb 10.3 oz Body Mass Index (BMI) 27.1 Physical Exam Const alert, oriented x3, no apparent distress and healthy appearing General Appearance: cooperative GI normal to inspection, nondistended, normoactive bowel sounds, soft to palpation, non-tender and non-distended Percussion: normal to percussion Rectal Exam: deferred Assessment & Plan Assessment/Plan (1) Elevated C-reactive protein: (2) Hiatal hernia: (3) GERD (gastroesophageal reflux disease): QUALIFIERS: Esophagitis presence: esophagitis presence not specified Qualified Code(s): K21.9 - Gastro-esophageal reflux disease without esophagitis (4) Diarrhea: PLAN: Plan Plan 43y/o male presents for follow-up. He was last seen by Dr. Quintanilla on 04/25/2024. Labs completed 04/25/2024 reveal CRP 21, allergy to corn, peanut and wheat. He had labs completed on 04/25/2024 and reports he had a sinus infection and was on doxycycline at the time. This may account for the elevated CRP. He started Bactrim yesterday (3rd ATB) for treatment of sinus infection. Of note he reports new onset leg cramps, muscle aches and joint pain since starting Bactrim and he will follow-up with switching clerk to discuss. We will plan to repeat CRP 7 days after completion of ATB. He reports a long history of GERD with a prior EGD that revealed a small HH 10 years ago. He has been on pantoprazole 40mg daily for the past 10+ years and c/o an increase in breakthrough symptoms with trigger foods (spicy, caffeine, sugar). As noted above his celiac labs were negative with a mild elevation in wheat, corn and peanuts on food allergen testing. He will continue wheat containing products at this time and we have discussed duodenal biopsy at time of EGD as definitive diagnosis for a true wheat/gluten allergy. We have discussed intolerance versus allergy. He may benefit from elimination of wheat from diet in future; however, we will assess his symptoms with trial of different PPI and elimination of corn and peanuts. If his breakthrough HB symptoms resolve with elimination of corn and peanuts and new PPI. We will plan to taper PPI to lowest possible dose for symptom management. If he continues to have breakthrough symptoms we will consider PCAB in place of PPI and elimination of wheat. Typically, those who have a true gluten allergy replace wheat products with corn substitutes and if he requires a wheat/corn free diet he will likely benefit from a pharmacy intern referral. Labs also revealed an elevated ALCA (82), AMCA (531), ACCA (495) and CRP (21) with normal CBC, CMP and fecal calprotectin. While these markers have a modest accuracy of detecting/differentiating UC/Crohn's and disease behavior, they are not diagnostic. Additionally, of these markers the pANCA and ASCA have a high specificity for IBD and these were both normal. He denies any change in bowel habits, pain, bleeding, or weight loss. He denies any family history of IBD. I recommend a colonoscopy and EGD as well as an MRE for further evaluation. Patient Instructions: 1. Discontinue pantoprazole 2. Start Lansoprazole 3. Schedule MRE 4. Proceed with colonoscopy and EGD 5. eliminate corn and peanuts form diet 6. follow-up in office after completion of testing to review findings Plan Details Follow Up: 3 Months
--- NOTE | 2024-07-08 07:25 | OP.CCLET_ITS ---
07/08/2024 Miguel Angel Cruz [address] [place] [address] [place] [address] Re : Upper GI endoscopy procedure for Lawson Hinson Dear Dr. Cruz This procedure was performed on Monday, July 08, 2024. My impressions and recommendations are as follows: Impressions : - Z-line irregular, 38 cm from the incisors. Biopsied. - Small hiatal hernia. - Erythematous duodenopathy. Biopsied. Recommendations : - Discharge patient to home. - Resume previous diet. - Continue present medications. - Await pathology results. My findings are described in the full procedure note, which is enclosed. If I can be of further assistance, please feel free to contact me at . Sincerely, Kg Quintanilla, 07/08/2024 7:24:23 AM This report has been signed electronically.
--- NOTE | 2024-07-08 07:25 | OP.EGD_ITS ---
Patient Name: Lawson Hinson Procedure Date: 07/08/2024 6:27 AM Date of : 1980 Age: 43 Procedure: Upper GI endoscopy Indications: Heartburn Providers: Kg Quintanilla DO Referring MD: Miguel Angel Cruz Medicines: Monitored Anesthesia Care Patient Profile: This is a 43 year old male. Refer to note in patient chart for documentation of history and physical. Patient has symptoms of chronic dyspepsia and chronic heartburn. Complications: No immediate complications. Procedure: Pre-Anesthesia Assessment: - Prior to the procedure, a History and Physical was performed, and patient medications and allergies were reviewed. The patient is competent. The risks and benefits of the procedure and the sedation options and risks were discussed with the patient. All questions were answered and informed consent was obtained. Patient identification and proposed procedure were verified by the physician in the pre-procedure area. Mental Status Examination: alert and oriented. Airway Examination: normal oropharyngeal airway and neck mobility. Respiratory Examination: clear to auscultation. CV Examination: normal. Prophylactic Antibiotics: The patient does not require prophylactic antibiotics. Prior Anticoagulants: The patient has taken no anticoagulant or antiplatelet agents except for NSAID medication. ASA Grade Assessment: II - A patient with mild systemic disease. After reviewing the risks and benefits, the patient was deemed in satisfactory condition to undergo the procedure. The anesthesia plan was to use monitored anesthesia care (MAC). Immediately prior to administration of medications, the patient was re-assessed for adequacy to receive sedatives. The heart rate, respiratory rate, oxygen saturations, blood pressure, adequacy of pulmonary ventilation, and response to care were monitored throughout the procedure. The physical status of the patient was re-assessed after the procedure. After obtaining informed consent, the endoscope was passed under direct vision. Throughout the procedure, the patient's blood pressure, pulse, and oxygen saturations were monitored continuously. The pediatric colonoscope was introduced through the mouth, and advanced to the second part of duodenum. The upper GI endoscopy was accomplished without difficulty. The patient tolerated the procedure well. Scope In: 6:49:39 AM Scope Out: 6:53:06 AM Total Procedure Duration Time 0 hours 3 minutes 27 seconds Findings: The Z-line was irregular and was found 38 cm from the incisors. Biopsies were taken with a cold forceps for histology. Verification of patient identification for the specimen was done. Estimated blood loss was minimal. A small hiatal hernia was present. The exam of the stomach was otherwise normal. Patchy mildly erythematous mucosa without active bleeding and with no stigmata of bleeding was found in the duodenal bulb. Biopsies were taken with a cold forceps for histology. Verification of patient identification for the specimen was done. Estimated blood loss was minimal. Impression: - Z-line irregular, 38 cm from the incisors. Biopsied. - Small hiatal hernia. - Erythematous duodenopathy. Biopsied. Recommendation: - Discharge patient to home. - Resume previous diet. - Continue present medications. - Await pathology results. Procedure Code(s): --- Professional --- 07711, Esophagogastroduodenoscopy, flexible, transoral; with biopsy, single or multiple CPT copyright 2021 [employer]. All rights reserved. The codes documented in this report are preliminary and upon want ad receiver review may be revised to meet current compliance requirements. Kg Quintanilla DO 07/08/2024 7:24:23 AM This report has been signed electronically. Number of Addenda: 0 Note Initiated On: 07/08/2024 6:27 AM
--- NOTE | 2024-07-08 07:26 | PCM.POST.ANE ---
Anesthesia: Postop Eval I Current Vital Signs Temperature: 97.2 F Pulse Rate: 67 Blood Pressure: 110/78 Respiratory Rate: 16 Pulse Ox: 96 Oxygen Delivery Method: Room Air Assessment Airway patent: Yes Spontaneous unlabored respirations: Yes Mental status: Asleep nausea: No Vomiting: No Anesthesia Complication: No Fluid Hydration Crystalloid volume administer (ml): 90 Total IV fluid infused: 90 Progress Note Anesthesia document: Postop Eval 1 completed: Yes
--- NOTE | 2024-07-08 07:30 | OP.COLON_ITS ---
Patient Name: Lawson Hinson Procedure Date: 07/08/2024 6:53 AM Date of : 1980 Age: 43 Procedure: Colonoscopy Indications: Generalized abdominal pain, Clinically significant diarrhea of unexplained origin Providers: Kg Quintanilla DO Referring MD: Miguel Angel Cruz Medicines: Monitored Anesthesia Care Patient Profile: This is a 43 year old male. Refer to note in patient chart for documentation of history and physical. Patient has symptoms of chronic dyspepsia and chronic heartburn. Last Colonoscopy: none. The patient's first colonoscopy is today. Complications: No immediate complications. Procedure: Pre-Anesthesia Assessment: - Prior to the procedure, a History and Physical was performed, and patient medications and allergies were reviewed. The patient is competent. The risks and benefits of the procedure and the sedation options and risks were discussed with the patient. All questions were answered and informed consent was obtained. Patient identification and proposed procedure were verified by the physician in the pre-procedure area. Mental Status Examination: alert and oriented. Airway Examination: normal oropharyngeal airway and neck mobility. Respiratory Examination: clear to auscultation. CV Examination: normal. Prophylactic Antibiotics: The patient does not require prophylactic antibiotics. Prior Anticoagulants: The patient has taken no anticoagulant or antiplatelet agents except for NSAID medication. ASA Grade Assessment: II - A patient with mild systemic disease. After reviewing the risks and benefits, the patient was deemed in satisfactory condition to undergo the procedure. The anesthesia plan was to use monitored anesthesia care (MAC). Immediately prior to administration of medications, the patient was re-assessed for adequacy to receive sedatives. The heart rate, respiratory rate, oxygen saturations, blood pressure, adequacy of pulmonary ventilation, and response to care were monitored throughout the procedure. The physical status of the patient was re-assessed after the procedure. After I obtained informed consent, the scope was passed under direct vision. Throughout the procedure, the patient's blood pressure, pulse, and oxygen saturations were monitored continuously. The pediatric colonoscope was introduced through the anus and advanced to the terminal ileum. The colonoscopy was performed without difficulty. The patient tolerated the procedure well. The quality of the bowel preparation was adequate. The terminal ileum, ileocecal valve, appendiceal orifice, and rectum were photographed. Scope In: 6:54:25 AM Scope Withdrawal Time 0 hours 9 minutes 7 seconds Scope Out: 7:18:48 AM Total Procedure Duration Time 0 hours 24 minutes 23 seconds Findings: The perianal and digital rectal examinations were normal. The rectum, recto-sigmoid colon, sigmoid colon, descending colon and splenic flexure were moderately redundant. Biopsies were taken with a cold forceps for histology. Verification of patient identification for the specimen was done. Estimated blood loss was minimal. A localized area of the terminal ileum was congested. Biopsies were taken with a cold forceps for histology. Verification of patient identification for the specimen was done. Estimated blood loss was minimal. Impression: - Redundant colon. - Congested mucosa in the terminal ileum. Biopsied. Recommendation: - Discharge patient to home. - Resume previous diet. - Continue present medications. - Await pathology results. - Repeat colonoscopy in 10 years for screening purposes. Procedure Code(s): --- Professional --- 80869, Colonoscopy, flexible; with biopsy, single or multiple CPT copyright 2021 [employer]. All rights reserved. The codes documented in this report are preliminary and upon hims coder review may be revised to meet current compliance requirements. Kg Quintanilla DO 07/08/2024 7:29:47 AM This report has been signed electronically. Number of Addenda: 0 Note Initiated On: 07/08/2024 6:53 AM
--- NOTE | 2024-07-08 07:30 | OP.CCLET_ITS ---
07/08/2024 Miguel Angel Cruz [address] [place] [address] Re : Colonoscopy procedure for Lawson Hinson Dear Dr. Cruz This procedure was performed on Monday, July 08, 2024. My impressions and recommendations are as follows: Impressions : - Redundant colon. - Congested mucosa in the terminal ileum. Biopsied. Recommendations : - Discharge patient to home. - Resume previous diet. - Continue present medications. - Await pathology results. - Repeat colonoscopy in 10 years for screening purposes. My findings are described in the full procedure note, which is enclosed. If I can be of further assistance, please feel free to contact me at . Sincerely, Kg Quintanilla, 07/08/2024 7:29:47 AM This report has been signed electronically.
--- NOTE | 2024-07-08 22:35 | PCM.POSTANE2 ---
Anesthesia Postop Eval I Sum Postop Eval Completion status Anesthesia document: Postop Eval 1 completed: Yes Anesthesia Postop Eval I Summary Anesthesia Postop Eval I Summary: Anesthesia Postop Eval I: Assessment Summary Airway patent Yes 07/08/24 07:28 [email or web address] Spontaneous unlabored Yes 07/08/24 07:28 [email or web address] respirations Mental status Asleep 07/08/24 07:28 [email or web address] nausea No 07/08/24 07:28 [email or web address] Vomiting No 07/08/24 07:28 [email or web address] Anesthesia Postop Eval I: Fluid Summary Crystalloid volume administer 90 07/08/24 07:28 [email or web address] (ml) Colloids volume administered ( ml) Blood Product volume administered (ml) Total IV fluid infused 90 07/08/24 07:28 [email or web address] Anesthesia Postop Eval I: Summary Notes Anesthesia Complication No 07/08/24 07:28 [email or web address] Anesthesia Complication Comment: Post-operative progress note Anesthesia: Postop Eval II Evaluation Mental status: Awake and Calm Pain Level: 0 nausea: No Vomiting: No Complications Anesthesia Complication: No
== END 2024-07-08 08:11 | disposition home or self-care (01) ==
LOC: EN 05:26 → AC 05:27
PROVIDERS: PCP Family Medicine; Referring Provider Family Medicine; Visit Provider Internal Medicine Gastroenterology
PROC: 0DJD8ZZ Inspection of Lower Intestinal Tract, Via Natural or Artificial Opening Endoscopic (ICD-10-PCS; CPT 45378; principal; 2024-07-08 06:25)
DX: K21.9 Gastro-esophageal reflux disease without esophagitis (principal); K44.9 Diaphragmatic hernia without obstruction or gangrene; R19.7 Diarrhea, unspecified; Q43.8 Other specified congenital malformations of intestine; K63.89 Other specified diseases of intestine; R79.82 Elevated C-reactive protein (CRP); Z80.0 Family history of malignant neoplasm of digestive organs; F32.A Depression, unspecified; F41.9 Anxiety disorder, unspecified; Z79.899 Other long term (current) drug therapy; K22.89 Other specified disease of esophagus
CPT/HCPCS: 43239; 88305; 88312; A4216; J2405

== ENCOUNTER → 2025-02-02 | Outpatient (CLI) | payer OTHER, SELFPAY ==
--- NOTE | 2025-02-02 09:18 | MRI_ITS ---
PROCEDURE: ENTEROGRAPHY ABD/PEL, 02/02/2025 REASON FOR EXAM: R89.9 - UNSPECIFIED ABNORMAL FINDING IN SPECIMENS FROM OTHER O... TECHNIQUE: Multisequence multiplanar MRI of the abdomen and pelvis was performed with and without IV contrast. IV contrast: 20 mL Clariscan PO contrast: Administered, type and dose information not provided COMPARISON: None. Exam dated 07/05/2024 could not be retrieved at the time of dictation. FINDINGS: Note that the exam was optimized for evaluation of the bowel rather than the remaining abdominopelvic viscera. Note also that dynamic T2 and diffusion sequences were note that not performed. Note, portions of some upper abdominal viscera a such as the cranial liver and spleen are excluded from the field of view of coronal and some axial sequences. [id number] additionally excludes the majority on most sequences. Majority of the anal canal and portions of the lower rectum excluded from the field of view of all sequences. Note also, colonic prep is poor, limiting evaluation. Liver: Grossly unremarkable. Spleen: Unremarkable. Gallbladder: Unremarkable. Pancreas: Unremarkable. Adrenals: Unremarkable. Kidneys: Unremarkable. Bowel: Tiny dynamic hiatal hernia seen on some sequences, reduced on other sequences. Tiny amount of layering contrast within the distal esophagus suggesting gastroesophageal reflux and/or dysmotility. No convincing areas of abnormal bowel wall thickening, mural stratification, hyperemia, or dilatation. No findings to suggest fistulization or abscess. Unremarkable appendix. Lymph nodes: Unremarkable. Vasculature: Unremarkable. Peritoneum: Unremarkable. Bladder: Grossly unremarkable. Reproductive Organs: Suspect small RIGHT varicocele; otherwise grossly unremarkable. Body Wall: Unremarkable. Bones: Grossly unremarkable. MRI/Enterography Abd/Pel IMPRESSION: 1. No convincing MRI evidence of inflammatory bowel disease. 2. Additional description as above. Reading Location: [id number]
[2025-02-02 10:47] VITALS: BP 135/85; PULSE 58; RESP 16; O2SAT 99
[2025-02-02] MEDS: Glucagon 1 MG/ML Syringe IV (11:23)
[2025-02-02 11:43] VITALS: BP 121/92; PULSE 74; RESP 16; O2SAT 97
== END | disposition home or self-care (01) ==
LOC: OPMRI 09:17
PROVIDERS: PCP Family Medicine; Referring Provider Internal Medicine Gastroenterology; Visit Provider Internal Medicine Gastroenterology
DX: R89.9 Unspecified abnormal finding in specimens from other organs, systems and tissues (principal); K21.9 Gastro-esophageal reflux disease without esophagitis; R79.82 Elevated C-reactive protein (CRP)
CPT/HCPCS: 74183; 96374; A9575; A4216; J1610

== ENCOUNTER → 2025-04-30 | Outpatient (CLI) | payer OTHER, SELFPAY | END | disposition home or self-care (01) | LOC: LABSPEC 15:37 | PROVIDERS: PCP Family Medicine; Referring Provider Otolaryngology; Visit Provider Otolaryngology | DX: J32.9 Chronic sinusitis, unspecified (principal) | CPT/HCPCS: 87070; 87077; 87186; 87205 ==